=== PATIENT | female | born 1960 | race Caucasian/White ===

== ENCOUNTER → 2020-02-13 | Outpatient (CLI) | payer OTHER, MEDICAID ==
--- NOTE | 2020-02-14 21:06 | RAD ---
EXAM DESCRIPTION: Radiographs of the right Shoulder:XR/CR/DR CLINICAL HISTORY: PAIN IN RIGHT SHOULDER COMPARISON: None TECHNIQUE: Three views. Internal and External rotation. Scapular "Y" image. FINDINGS: No fracture right shoulder. Normal bone density. AC joint minimal marginal spurs. Downsloping lateral acromion. Glenohumeral joint negative. No abnormal radiodense objects in the soft tissues or joint spaces. 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 Electronically signed by: Ashwin Lau MD 02/14/2020 9:04 PM [facility]
== END ==
LOC: RAD 13:59
PROVIDERS: ATTEND Nurse Practitioner Family
DX: M19.011 Primary osteoarthritis, right shoulder (principal)